=== PATIENT | male | born 1945 | race American Indian/Alaskan Native ===

== ENCOUNTER 2017-06-13 14:33 | Emergency (ER) | payer MEDICARE, MEDICAID ==
[2017-06-13] MEDS ORDERED: Sodium Chloride 0.9% 10 ML Syringe FLUSH PRN (14:42)
[2017-06-13] MEDS ORDERED: Albuterol 0.083% 2.5 MG/3 ML Neb Soln NEB ONE (14:43)
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
[2017-06-13] MEDS ORDERED: Lactated Ringers 1,000 ML IV ONE (15:48)
[2017-06-13] MEDS ORDERED: cefTRIAXone 1,000 MG in Sodium Chloride 0.9% 50 ML IV ONE (15:54)
[2017-06-13] MEDS ORDERED: methylPREDNISolone Sodium Succinate 40 MG/1 ML SDV IVPUSH ONE (16:05)
--- NOTE | 2017-06-13 16:18 | CR ---
INDICATION: Shortness of breath, cough. CHEST: PA and lateral views of the chest were obtained 06/13/2017 and compared with 09/14/2016. There is again evidence of median sternotomy with clips in the mediastinum. The heart is enlarged in general. The aorta is tortuous with calcification in the arch. Bony structures are poorly visualized, but appear grossly intact. Extensive reticulonodular densities are noted throughout the lungs, especially on the right and likely represent pulmonary fibrosis of moderately severe degree , as they are essentially identical to the previous examination. This appearance does make it impossible to exclude areas of patchy bronchopneumonia, however, and acute disease could be superimposed. No gross consolidating pneumonia or pleural effusion was identified. IMPRESSION: 1. No definite acute process, but cannot exclude acute disease superimposed on severe pulmonary fibrosis. 2. ASHD with post-surgical change. 3. Probable COPD with flattened diaphragm leaf. Report was called to Dr. Remy at 1553 hours, 06/13/2017. [facility]
[2017-06-13] MEDS ORDERED: Azithromycin 500 MG Tab PO ONE (16:59)
[2017-06-13 18:18] VITALS: BP 125/76
== END 2017-06-13 18:10 | disposition home or self-care (01) ==
LOC: FB.ED 14:33
DX: E86.0 Dehydration (principal); J40 Bronchitis, not specified as acute or chronic; E78.00 Pure hypercholesterolemia, unspecified; J44.9 Chronic obstructive pulmonary disease, unspecified; I11.0 Hypertensive heart disease with heart failure; I50.9 Heart failure, unspecified; F17.210 Nicotine dependence, cigarettes, uncomplicated; Z91.040 Latex allergy status; Z88.5 Allergy status to narcotic agent; Z79.899 Other long term (current) drug therapy; Z88.8 Allergy status to other drugs, medicaments and biological substances
CPT/HCPCS: 36415; 36600; 71020; 80053; 81001; 82803; 84484; 85027; 94664; 96365; 96375; 99284; A9270; J0696; J2920; J7050; J7120

== ENCOUNTER 2017-07-22 19:58 | Emergency (ER) | payer MEDICARE, MEDICAID ==
[2017-07-22] MEDS ORDERED: Albuterol/Ipratropium 3.0-0.5 MG/3 ML Neb Soln NEB ONE (23:33)
[2017-07-23 00:16] VITALS: BP 108/75
--- NOTE | 2017-07-23 01:33 | ER ---
DATE SEEN: 07/22/2017 ADDENDUM: TIME SEEN: Enrique Loaiza was seen at 2025 hours. He had an EKG with left anterior hemiblock, ischemia noted in lead I, aVF with ST depression 1 mm and T-wave inversion. /[id number] DAYSI/JUAN
--- NOTE | 2017-07-24 10:21 | ER ---
DATE SEEN: 07/22/2017 HISTORY OF PRESENT ILLNESS: This 72-year-old man, who lives in [place], [place], is known to have COPD and is on chronic oxygen therapy, coronary artery disease with previous 1-vessel CABG, status post previous echo 09/12/2016 with ejection fraction 60%. Basilar segmental hypokinesis with diastolic heart failure, normal right ventricular function, moderate dilation of left ventricle, GERD, Keppra for seizures, myocardial infarction 11/2009 with CABG x3 vessels. The patient has been poor health. 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 He still smokes 3 cigarettes per day. Not drinking alcohol. He presents tonight because he has had a dizzy spell. He was mildly short of breath. Denies chest pain. Denied back pain, arm pain, jaw pain, neck pain, or falling. Denies headache or neck stiffness. CURRENT MEDICATIONS: 1. Clopidogrel 75 mg daily. 2. Levetiracetam - Keppra 750 mg b.i.d. 3. Bupropion 150 mg b.i.d. (he has not been successful in stopping his smoking. He still smokes 3 cigarettes per day). 4. Potassium chloride 10 mEq daily. 5. Omeprazole 20 mg daily. 6. Metoprolol tartrate 50 mg b.i.d. 7. Lovastatin 40 mg daily. 8. Lisinopril 10 mg daily. 9. Isosorbide mononitrate (Imdur) 60 mg. 10.Gabapentin 300 mg at bedtime. 11.Lasix 40 mg b.i.d. 12.Tessalon Perles t.i.d. p.r.n. 13.Albuterol DuoNeb 1 dose p.r.n. ALLERGIES: Iodine, latex, Maitake mushrooms, and triamcinolone. REVIEW OF SYSTEMS: The patient is a poor historian. In fact, it is very hard to even hear him. He mumbles and slurs his words so much. It is indeterminate how active he is. It is my notion that he sits in the chair a lot. He has his hat over his head, so I had to bring his hat back so I could look in his eyes. PHYSICAL EXAMINATION: HEENT: PERRLA intact. He does have minimal reactivity of the pupils. Hearing is decreased. Pharynx with poor dentition and mouth is slightly dry. What might be chewing tobacco fragments are in his mouth. NECK: Mild kyphosis. No bruits. No jugular venous distention. LUNGS: Decreased air exchange. Moderate rales in lungs. Moderate dry rales and crackles mostly left base and right base. Absent rhonchi. There are occasional wheezes. No chest wall tenderness to palpation. ABDOMEN: Liver edge is palpable. No splenomegaly noted. Abdomen is otherwise soft. No bruits. EXTREMITIES: Lower extremities without pedal edema. Stasis dermatitis noted. NEUROLOGIC: Deep tendon reflexes hypoactive in upper and lower extremities, but present. Cranial nerves 2 through 12 intact, except for hearing. He has questionable swallowing difficulty. DIAGNOSTIC DATA: Chest x-ray moderate scarring, fibrosis, and several pneumatoceles. No consolidation, no airspace densities. Mild cardiomegaly. LABORATORY FINDINGS: Eosinophilia. The latter makes me wonder if he has Sheila's pneumonitis or Sheila's lung - pulmonary eosinophilia. Hemoglobin is elevated at 16.6, reflects his carbon dioxide level, chronic hypoxia, and chronic hypercarbia from his significant smoking. Hemoglobin was elevated at 14.3. ABGs on 3 L O2 nasal cannula, pO2 is 109, bicarb is 28, ABG saturation 98%, acid- base excess 3.2, and pH 7.41. Complete metabolic panel looks good. Sodium 140, potassium 4.7, chloride 103, CO2 of 29, BUN 31, creatinine 1.3, estimated GFR 54, and BUN and creatinine ratio reflects dehydration 24. Remainder of the laboratory and complete metabolic panel are normal, including albumin and globulin. ASSESSMENT: 1. Exacerbation of chronic obstructive lung disease. 2. It is possible the patient has infection, but at present, it is not evident. 3. Significant chronic obstructive pulmonary disease with fibrosis and no airspace densities, but there is significant suggestion of an infiltrate/fibrosis, areas of poor oxygen perfusion. 4. Coronary artery disease. 5. Seizure disorder. 6. Myocardial infarction, 11/2009 with coronary artery bypass graft of 3 vessels. Ejection fraction in 2016 of 60% with basilar segment hypokinesis and diastolic failure. PLAN: The patient dismissed. Continue with his prednisone which he had started 2 days ago and also his azithromycin. Follow up with his doctor in a week. /[id number] SEAN
--- NOTE | 2017-07-24 13:23 | CR ---
INDICATION: Weakness. CHEST: AP and lateral views of the chest 08/01/2017, compared with 06/13/2017 and 09/14/2016, again revealed evidence of extensive pulmonary fibrosis, appearing most severe on the right. It is difficult to exclude superimposed areas of pneumonia with this appearance. The heart is enlarged. The aorta is tortuous and calcified. Evidence of median sternotomy is noted. Relatively poor inspiration is suggested. It is also impossible to exclude a degree of CHF and pulmonary vascular congestion with this appearance. IMPRESSION: 1. Little change from previous study. No definite acute process. 2. Severe pulmonary fibrosis. 3. ASHD with cardiomegaly. MTDD
== END 2017-07-23 | disposition home or self-care (01) ==
LOC: FB.ED 19:58
DX: J44.1 Chronic obstructive pulmonary disease with (acute) exacerbation (principal); I25.10 Atherosclerotic heart disease of native coronary artery without angina pectoris; I25.2 Old myocardial infarction; Z79.899 Other long term (current) drug therapy; Z91.040 Latex allergy status; Z88.8 Allergy status to other drugs, medicaments and biological substances; K21.9 Gastro-esophageal reflux disease without esophagitis
CPT/HCPCS: 36415; 36600; 71020; 80053; 82803; 83880; 84484; 85025; 85610; 85730; 93005; 94640; 99283; J7620

== ENCOUNTER 2017-08-17 15:01 | Inpatient (IN) | payer MEDICARE, MEDICAID ==
[2017-08-17] MEDS ORDERED: Albuterol/Ipratropium 3.0-0.5 MG/3 ML Neb Soln NEB ONE (15:41)
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
[2017-08-17] MEDS ORDERED: Levofloxacin/Dextrose 5%-Water 750 MG in Premix Bag 1 BAG IV SCH ×2 (17:45→18:45)
[2017-08-17] MEDS ORDERED: Magnesium Hydroxide 400 MG/5 ML Susp 30 ML Cup PO PRN (18:39)
[2017-08-17] MEDS ORDERED: Albuterol 0.5% 5 MG/ML Neb Soln 20 ML Bottle NEB PRN (18:39)
[2017-08-17] MEDS ORDERED: Ondansetron 4 MG Tab.DIS PO PRN (18:39)
[2017-08-17] MEDS ORDERED: Benzonatate 100 MG Cap PO PRN (18:52)
[2017-08-17] MEDS ORDERED: Furosemide 40 MG Tab PO SCH (19:00)
[2017-08-17] MEDS ORDERED: Furosemide 20 MG/2 ML VIAL IVPUSH SCH (19:00)
[2017-08-17] MEDS ORDERED: levETIRAcetam 500 MG Tab PO SCH ×2 (19:00→21:00)
[2017-08-17] MEDS: Albuterol/Ipratropium 3.0-0.5 MG/3 ML Neb Soln NEB SCH ×2 (19:44→22:01)
[2017-08-17] MEDS: Metoprolol Tartrate 50 MG Tab PO SCH (20:05)
[2017-08-17] MEDS: buPROPion 150 MG Tab.SR PO SCH ×2 (20:40→20:41)
[2017-08-17] MEDS: methylPREDNISolone Sodium Succinate 125 MG/2 ML SDV IV SCH (20:42)
[2017-08-18] MEDS: Albuterol/Ipratropium 3.0-0.5 MG/3 ML Neb Soln NEB SCH ×4 (07:17→20:05)
[2017-08-18] MEDS ORDERED: Lisinopril 5 MG Tab PO SCH (09:00)
[2017-08-18] MEDS ORDERED: Isosorbide Mononitrate 60 MG Tab.ER PO SCH (09:00)
[2017-08-18] MEDS: Metoprolol Tartrate 50 MG Tab PO SCH (09:00)
[2017-08-18] MEDS ORDERED: levETIRAcetam 250 MG Tab PO SCH (09:00)
[2017-08-18] MEDS ORDERED: Sodium Chloride 0.9% 10 ML Syringe FLUSH PRN (09:00)
[2017-08-18] MEDS: Enoxaparin 40 MG/0.4 ML Syringe SUBCUT SCH (09:02)
[2017-08-18] MEDS: Clopidogrel 75 MG Tab PO SCH (09:02)
[2017-08-18] MEDS: methylPREDNISolone Sodium Succinate 125 MG/2 ML SDV IV SCH ×2 (09:03→13:35)
[2017-08-18] MEDS: Pantoprazole 40 MG Tab.CR PO SCH (09:03)
[2017-08-18] MEDS: buPROPion 150 MG Tab.SR PO SCH ×2 (09:03→20:03)
[2017-08-18] MEDS ORDERED: Sodium Chloride 0.9% 250 ML IV SCH (09:45)
--- NOTE | 2017-08-18 11:18 | CR ---
INDICATION: Short of breath. CHEST: PA and lateral views of the chest, 08/17/2017, were compared with 2016 and 06/13/2017, again revealing little interval change from the previous examination, with severe pulmonary fibrosis, cardiomegaly, tortuous aorta, post median sternotomy changes. No definite consolidating superimposed pneumonia is identified. No definite pleural effusion is seen. It is difficult to exclude CHF and interstitial lung edema with this appearance additionally - correlate clinically. Overlying EKG leads are noted. IMPRESSION: Overall stable appearance of the chest with fairly severe pulmonary fibrosis, ASHD, and cardiomegaly. It is difficult to exclude mild CHF and interstitial lung edema or superimposed area of pneumonia. MTDD
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
[2017-08-18] MEDS: Nicotine Polacrilex 2 MG Gum CHEW PRN (19:44)
[2017-08-18] MEDS: Levofloxacin 250 MG Tab PO SCH (19:45)
[2017-08-18] MEDS: Metoprolol Succinate 25 MG Tab.ER PO SCH (20:03)
[2017-08-18] MEDS: Gabapentin 300 MG Cap PO SCH (20:04)
[2017-08-18] MEDS: levETIRAcetam 500 MG Tab PO SCH (20:04)
[2017-08-18] MEDS: Simvastatin 20 MG Tab PO SCH (20:07)
[2017-08-19] MEDS: Albuterol/Ipratropium 3.0-0.5 MG/3 ML Neb Soln NEB SCH ×4 (07:37→20:46)
[2017-08-19] MEDS: Isosorbide Mononitrate 30 MG Tab.ER PO SCH (09:04)
[2017-08-19] MEDS: predniSONE 20 MG Tab PO SCH (09:05)
[2017-08-19] MEDS: levETIRAcetam 500 MG Tab PO SCH ×2 (09:06→20:46)
[2017-08-19] MEDS: Clopidogrel 75 MG Tab PO SCH (09:07)
[2017-08-19] MEDS: Lisinopril 2.5 MG Tab PO SCH (09:07)
[2017-08-19] MEDS: Enoxaparin 40 MG/0.4 ML Syringe SUBCUT SCH (09:07)
[2017-08-19] MEDS: Pantoprazole 40 MG Tab.CR PO SCH (09:07)
[2017-08-19] MEDS: buPROPion 150 MG Tab.SR PO SCH ×2 (09:08→20:49)
[2017-08-19] MEDS: Nicotine Polacrilex 2 MG Gum CHEW PRN (09:09)
--- NOTE | 2017-08-19 11:49 | PCM.PN ---
- General Info Date of Service: 08/19/17 Subjective Update: Patient is a 72-year-old male on hospital day #3 for community-acquired pneumonia, possible CHF. Patient is doing very well today. He actually was off his oxygen right now although he normally is on 2 L at home at baseline. He's had no chest pain, breathing is much improved. His blood pressures continue to run low but he's had no symptoms of hypotension. He is using nicotine gum to replace his cigarettes and this has been working well for him. No nausea, no vomiting, no diarrhea. - Patient Data Vitals - Most Recent: Last Vital Signs Temp 36.3 C 08/19/17 00:00 Pulse 66 08/19/17 07:48 Resp 20 08/19/17 04:00 BP 99/67 08/19/17 09:07 Pulse Ox 97 08/19/17 11:19 Weight - Most Recent: 80.286 kg I&O - Last 24 Hours: Intake & Output 08/18/17 08/19/17 08/19/17 22:59 06:59 14:59 Intake Total 300 200 Output Total 400 400 Balance -100 -200 Lab Results Last 24 Hours: Laboratory Results - last 24 hr 08/19/17 08/19/17 Range/Units 06:22 06:22 WBC 19.0 H (4.5-12.0) X10-3/uL RBC 4.84 (4.30-5.75) x10(6)uL Hgb 14.1 (11.5-15.5) g/dL Hct 43.3 (30.0-51.3) % MCV 89.5 (80-96) fL MCH 29.2 (27.7-33.6) pg MCHC 32.6 (32.2-35.4) g/dL RDW 13.7 (11.5-15.5) % Plt Count 269 (125-369) X10(3)uL MPV 9.9 (7.4-10.4) fL Add Manual Diff Yes Neutrophils % (Manual) 84 H (46-82) % Lymphocytes % (Manual) 10 L (13-37) % Monocytes % (Manual) 6 (4-12) % Sodium 140 (135-145) mmol/L Potassium 4.7 (3.5-5.3) mmol/L Chloride 103 (100-110) mmol/L Carbon Dioxide 31 H (23-29) mmol/L BUN 15 (8-23) mg/dL Creatinine 0.9 (0.6-1.3) mg/dL Est Cr Clr Drug Dosing 82.63 mL/min Estimated GFR (MDRD) > 60 (>60) BUN/Creatinine Ratio 16.7 (9-20) Glucose 141 H (80-116) mg/dL Calcium 9.8 (8.6-10.2) mg/dL Med Orders - Current: Current Medications Albuterol (Proventil Neb Soln) 2.5 mg NEB Q2H PRN PRN Reason: Shortness of Breath Albuterol/Ipratropium (Duoneb 3.0-0.5 Mg/3 Ml) 3 ml NEB QIDRT [facility] Last Admin: 08/19/17 11:19 Dose: 3 ml Benzonatate (Tessalon Perles) 100 mg PO TID PRN PRN Reason: Cough Last Admin: 08/18/17 00:30 Dose: 100 mg Bupropion HCl (Wellbutrin Sr) 150 mg PO BID [facility] Last Admin: 08/19/17 09:08 Dose: 150 mg Clopidogrel Bisulfate (Plavix) 75 mg PO DAILY [facility] Last Admin: 08/19/17 09:07 Dose: 75 mg Enoxaparin Sodium (Lovenox) 40 mg SUBCUT DAILY [facility] Last Admin: 08/19/17 09:07 Dose: 40 mg Furosemide (Lasix) 40 mg PO BID [facility] Gabapentin (Neurontin) 300 mg PO BEDTIME [facility] Last Admin: 08/18/17 20:04 Dose: 300 mg Sodium Chloride (Normal Saline) 250 mls @ 100 mls/hr IV ASDIRECTED [facility] Isosorbide Mononitrate (Imdur) 15 mg PO DAILY [facility] Last Admin: 08/19/17 09:04 Dose: 15 mg Levetiracetam (Keppra) 750 mg PO BID [facility] Last Admin: 08/19/17 09:06 Dose: 750 mg Levofloxacin (Levaquin) 750 mg PO Q24H [facility] Stop: 08/21/17 19:01 Last Admin: 08/18/17 19:45 Dose: 750 mg Lisinopril (Prinivil) 2.5 mg PO DAILY [facility] Last Admin: 08/19/17 09:07 Dose: 2.5 mg Magnesium Hydroxide (Milk Of Magnesia) 30 ml PO Q12H PRN PRN Reason: Constipation Metoprolol Succinate (Toprol Xl) 12.5 mg PO BEDTIME [facility] Last Admin: 08/18/17 20:03 Dose: 12.5 mg Nicotine Polacrilex (Nicorelief) 2 mg CHEW Q1H PRN PRN Reason: Other Last Admin: 08/19/17 09:09 Dose: 2 mg Ondansetron HCl (Zofran Odt) 4 mg PO Q6H PRN PRN Reason: nausea, able to take PO Pantoprazole Sodium (Protonix) 40 mg PO DAILY [facility] Last Admin: 08/19/17 09:07 Dose: 40 mg Prednisone (Prednisone) 40 mg PO WITHBREAKFAST [facility] Stop: 08/24/17 08:01 Last Admin: 08/19/17 09:05 Dose: 40 mg Simvastatin (Zocor) 20 mg PO BEDTIME [facility] Last Admin: 08/18/17 20:07 Dose: 20 mg Sodium Chloride (Saline Flush) 10 ml FLUSH ASDIRECTED PRN PRN Reason: flush med Last Admin: 08/18/17 13:35 Dose: 10 ml Discontinued Medications Albuterol/Ipratropium (Duoneb 3.0-0.5 Mg/3 Ml) 3 ml NEB ONETIME ONE Stop: 08/17/17 15:42 Last Admin: 08/17/17 16:20 Dose: 3 ml Furosemide (Lasix) 20 mg IVPUSH DAILY [facility] Last Admin: 08/17/17 20:05 Dose: Not Given Levofloxacin/Dextrose 750 mg/ (Premix) 150 mls @ 100 mls/hr IV Q24H [facility] Last Admin: 08/17/17 19:15 Dose: 100 mls/hr Levofloxacin/Dextrose 750 mg/ (Premix) 150 mls @ 100 mls/hr IV Q24H [facility] Last Admin: 08/17/17 19:33 Dose: Not Given Isosorbide Mononitrate (Imdur) 60 mg PO DAILY [facility] Last Admin: 08/18/17 09:01 Dose: 60 mg Levetiracetam (Keppra) 750 mg PO BID [facility] Last Admin: 08/17/17 20:53 Dose: Not Given Levetiracetam (Keppra) 750 mg PO BID [facility] Last Admin: 08/17/17 20:42 Dose: 750 mg Levetiracetam (Keppra) 750 mg PO BID [facility] Last Admin: 08/18/17 09:01 Dose: 750 mg Lisinopril (Prinivil) 5 mg PO DAILY [facility] Methylprednisolone Sodium Succinate (Solu-Medrol) 125 mg IV TID [facility] Last Admin: 08/18/17 13:35 Dose: 125 mg Methylprednisolone Sodium Succinate (Solu-Medrol) 125 mg IV TID [facility] Metoprolol Tartrate (Lopressor) 25 mg PO BID [facility] Last Admin: 08/18/17 09:00 Dose: Not Given - Exam General: Alert, Oriented, Cooperative, No Acute Distress HEENT: Pupils Equal Neck: Supple Lungs: Other (Lungs much more clear than yesterday. Still has occasional wheezes with deep exhalation. Coarse breath sounds. No rales.) Cardiovascular: Regular Rate, Regular Rhythm, No Murmurs GI/Abdominal Exam: Normal Bowel Sounds, Soft, Non-Tender, No Distention Extremities: No Pedal Edema Skin: Dry, Intact Psy/Mental Status: Alert, Normal Affect, Normal Mood - Problem List & Annotations (1) COPD exacerbation SNOMED Code(s): 337833371627728 Code(s): J44.1 - CHRONIC OBSTRUCTIVE PULMONARY DISEASE W (ACUTE) EXACERBATION Status: Acute Current Visit: Yes Annotation/Comment:: Shortness of breath, likely COPD exacerbation, possible pneumonia. Patient responding very well to current treatment. On all oral medications at this time. Anticipate discharge tomorrow if he continues to do well. Continue duo nebs 4 times a day. Currently on by mouth Levaquin, by mouth prednisone. (2) Hypotension SNOMED Code(s): 21924087 Code(s): I95.9 - HYPOTENSION, UNSPECIFIED Status: Acute Current Visit: Yes Annotation/Comment:: Patient is currently tolerating low dose lisinopril, low-dose metoprolol, and reduced dose Imdur. Continue to monitor blood pressure. (3) Nicotine abuse SNOMED Code(s): 28079467 Code(s): Z72.0 - TOBACCO USE Status: Acute Current Visit: Yes Annotation/Comment:: tobacco replacement. (4) DVT prophylaxis SNOMED Code(s): 515043364 Code(s): LOI6750 - Status: Acute Current Visit: Yes Annotation/Comment :: currently on Lovenox. - Problem List Review Problem List Initiated/Reviewed/Updated: Yes - My Orders Last 24 Hours: My Active Orders 08/18/17 16:02 Nicotine Polacrilex [Nicorelief] 2 mg CHEW Q1H PRN 08/18/17 16:23 Code Status [Resuscitation Status] Routine 08/18/17 19:00 Levofloxacin [Levaquin] 750 mg PO Q24H 08/18/17 21:00 Metoprolol Succinate [Toprol XL] 12.5 mg PO BEDTIME Simvastatin [Zocor] 20 mg PO BEDTIME 08/19/17 08:00 predniSONE 40 mg PO WITHBREAKFAST 08/19/17 09:00 Isosorbide Mononitrate [Imdur] 15 mg PO DAILY Lisinopril [Prinivil] 2.5 mg PO DAILY 08/20/17 05:11 COMPREHENSIVE METABOLIC PN,CMP [CHEM] AM - Plan Plan:: CODE STATUS discussed at length the patient. If his heart were to stop beating or he were to stop breathing, he would not want heroic measures to try to bring him back to life. If his breathing gets so bad that we think we might need to intubate in order to keep him from dying, he would not want to be put on a breathing machine. He would rather have medications given to him to keep him comfortable. Thus the patient is a DNR/DNI.
[2017-08-19] MEDS: Levofloxacin 250 MG Tab PO SCH (18:03)
[2017-08-19] MEDS: Gabapentin 300 MG Cap PO SCH (20:47)
[2017-08-19] MEDS: Metoprolol Succinate 25 MG Tab.ER PO SCH (20:48)
[2017-08-19] MEDS: Simvastatin 20 MG Tab PO SCH (20:51)
[2017-08-20] MEDS: Albuterol/Ipratropium 3.0-0.5 MG/3 ML Neb Soln NEB SCH ×2 (08:23→13:39)
[2017-08-20] MEDS: Clopidogrel 75 MG Tab PO SCH (08:36)
[2017-08-20] MEDS: levETIRAcetam 500 MG Tab PO SCH (08:37)
[2017-08-20] MEDS: buPROPion 150 MG Tab.SR PO SCH (08:37)
[2017-08-20] MEDS: Lisinopril 2.5 MG Tab PO SCH (08:37)
[2017-08-20] MEDS: Pantoprazole 40 MG Tab.CR PO SCH (08:37)
[2017-08-20] MEDS: predniSONE 20 MG Tab PO SCH (08:38)
[2017-08-20] MEDS: Isosorbide Mononitrate 30 MG Tab.ER PO SCH (08:38)
[2017-08-20] MEDS: Nicotine Polacrilex 2 MG Gum CHEW PRN (08:39)
[2017-08-20] MEDS: Enoxaparin 40 MG/0.4 ML Syringe SUBCUT SCH (08:39)
--- NOTE | 2017-08-20 10:32 | PCM.DCSUM1 ---
Discharge Summary - Hospital Course Free Text/Narrative:: Patient is a 72-year-old male with chronic obstructive pulmonary disease with pulmonary fibrosis, and congestive heart failure with chronic diastolic dysfunction and cardiomegaly, ejection fraction 60% in August 2016. Over the past few months he's had increasing shortness of breath. He just gets really played out when he tries to do anything. He has not had any increased phlegm but has had increased cough. He's had no chest pain. No nausea, vomiting, diarrhea. No fevers, no chills. He has definitely had less energy and more fatigued. Less appetite. He called the [facility] on 08/14/17 and left a phone message for his doctor who because he was having hypotension held his lisinopril and metoprolol and told him to start Ceftin 250 mg by mouth twice a day 1 week. When the home health nurse was out day [employer] she was concerned about his shortness of breath on his 2 L of oxygen that he is normally on and asked him to come into the emergency department. He was evaluated there and found to have a pneumonia and was admitted on IV Levaquin, IV steroids and DuoNeb's. Blood pressures at home were in the 70s at times. He has a history of myocardial infarction in 2004 with coronary artery bypass grafting 3. Also thinks he's had a couple of "other heart attacks" that were small. He takes Lasix 40 mg by mouth twice a day, Imdur 60 mg daily, and was also taking lisinopril 5 mg daily and metoprolol. He did not lisinopril, metoprolol for the last week [employer]. Hospital course: Patient did very well throughout his hospital stay. Cough improved. Shortness of breath improved. Need for supplemental oxygen decreased below baseline. He was able to be converted to oral steroids and oral antibiotics fairly quickly and on hospital day #4 was ready for discharge. Patient on day of discharge was feeling about 80% back to baseline. No chest pain, no shortness of breath, no nausea, no vomiting, no diarrhea. He does have a history of smoking at home and has been using the gum in the hospital successfully. Will be discharged on this as he's interested in smoking cessation. - Discharge Data Discharge Date: 08/20/17 Discharge Disposition: Home, W Home Health Agency 06 Condition: Good - Discharge Diagnosis/Problem(s) (1) COPD exacerbation SNOMED Code(s): 865239723136955 ICD Code: J44.1 - CHRONIC OBSTRUCTIVE PULMONARY DISEASE W (ACUTE) EXACERBATION Status: Acute Current Visit: Yes Problem Details: Clinically improved. D/C to complete 5 days of PO levaquin, PO prednisone. (2) Hypotension SNOMED Code(s): 44833859 ICD Code: I95.9 - HYPOTENSION, UNSPECIFIED Status: Acute Current Visit: Yes Problem Details: Patient is currently tolerating low dose lisinopril, low- dose metoprolol, and reduced dose Imdur. If continues to have low BP as outpatient, would consider stopping Imdur. (3) Nicotine abuse SNOMED Code(s): 17503424 ICD Code: Z72.0 - TOBACCO USE Status: Acute Current Visit: Yes Problem Details: tobacco replacement as outpatient, encouraged to quit. (4) DVT prophylaxis SNOMED Code(s): 175163272 ICD Code: DCV2750 - Status: Acute Current Visit: Yes Problem Details: currently on Lovenox. 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 Consider changing to other antidepressant. - Patient Instructions Diet: Heart Healthy Diet, Low Sodium Activity: Cough & Deep Breathe Other/Special Instructions: Continue levaquin and prednisone for one more day. Follow up with your regular doctor to recheck your potassium and kidney function as well as your blood pressure medications. Until you see your doctor , take only 1/2 of your blood pressure pills, and don't take your potassium. If your blood pressure is still low, stop the imdur first. Your metoprolol and lisinopril are good for your heart after heart attack. Talk to your doctor about stopping the wellbutrin and using a different antidepressant as wellbutrin can cause seizures and you have a history of seizures. - Discharge Plan Prescriptions/Med Rec: Isosorbide Mononitrate [Imdur] 15 mg PO DAILY 30 Days #15 tab.er Levofloxacin [Levaquin] 750 mg PO Q24H 1 Days #1 tablet Lisinopril [Prinivil] 2.5 mg PO DAILY 30 Days #15 tablet Metoprolol Succinate [Toprol XL] 12.5 mg PO BEDTIME 30 Days #15 tab.er Nicotine Polacrilex [Nicotine Lozenge] 4 mg BC Q1H PRN 30 Days #100 lozng.mini PRN Reason: nicotine addiction Nicotine Polacrilex [Nicorelief] 2 mg CHEW Q1H PRN 10 Days #60 gum PRN Reason: nicotine addiction Prednisone [IJD: predniSONE] 40 mg PO WITHBREAKFAST 1 Days #2 tablet Home Medications: Home Meds Furosemide [Lasix] 40 mg PO BID 07/23/13 [History] Omeprazole 20 mg PO DAILY 07/23/13 [History] Clopidogrel Bisulfate [Clopidogrel] 75 mg PO DAILY 03/21/14 [History] Albuterol/Ipratropium [DuoNeb 3.0-0.5 MG/3 ML] 1 dose INH QID PRN 09/11/16 [ History] Gabapentin 300 mg PO BEDTIME 09/11/16 [History] buPROPion HCl [Wellbutrin SR] 150 mg PO BID 09/12/16 [History] Benzonatate [Tessalon Perles] 100 mg PO TID 07/22/17 [History] levETIRAcetam [Keppra] 750 mg PO BID 07/22/17 [History] Albuterol [Ventolin HFA] 2 puff IH 6XDAY PRN 08/18/17 [History] Lovastatin 40 mg PO BEDTIME 08/18/17 [History] Albuterol/Ipratropium [DuoNeb 3.0-0.5 MG/3 ML] 3 ml NEB QIDRT neb 08/20/17 [Rx] Isosorbide Mononitrate [Imdur] 15 mg PO DAILY 30 Days #15 tab.er 08/20/17 [Rx] Levofloxacin [Levaquin] 750 mg PO Q24H 1 Days #1 tablet 08/20/17 [Rx] Lisinopril [Prinivil] 2.5 mg PO DAILY 30 Days #15 tablet 08/20/17 [Rx] Metoprolol Succinate [Toprol XL] 12.5 mg PO BEDTIME 30 Days #15 tab.er 08/20/17 [Rx] Nicotine Polacrilex [Nicorelief] 2 mg CHEW Q1H PRN 10 Days #60 gum 08/20/17 [Rx] Nicotine Polacrilex [Nicotine Lozenge] 4 mg BC Q1H PRN 30 Days #100 lozng.mini 08/20/17 [Rx] Prednisone [IJD: predniSONE] 40 mg PO WITHBREAKFAST 1 Days #2 tablet 08/20/17 [ Rx] Patient Handouts: Venous Thromboembolism Prevention Forms: ED Department Discharge Referrals: PCP,None [Primary Care Provider] - - Patient Data Vitals - Most Recent: Last Vital Signs Temp 36.4 C 08/20/17 00:00 Pulse 64 08/20/17 08:23 Resp 18 08/20/17 00:00 BP 100/60 08/20/17 08:38 Pulse Ox 90 L 08/20/17 08:23 Weight - Most Recent: 80.104 kg I&O - Last 24 hours: Intake & Output 08/19/17 08/20/17 08/20/17 23:59 06:59 14:59 Intake Total Output Total Balance Lab Results - Last 24 hrs: Laboratory Results - last 24 hr 08/20/17 08/20/17 Range/Units 05:30 05:30 WBC 16.2 H (4.5-12.0) X10-3/uL RBC 4.95 (4.30-5.75) x10(6)uL Hgb 14.5 (11.5-15.5) g/dL Hct 43.9 (30.0-51.3) % MCV 88.6 (80-96) fL MCH 29.3 (27.7-33.6) pg MCHC 33.1 (32.2-35.4) g/dL RDW 14.3 (11.5-15.5) % Plt Count 303 (125-369) X10(3)uL MPV 9.8 (7.4-10.4) fL Neut % (Auto) 72.6 (46-82) % Lymph % (Auto) 16.9 (13-37) % [place] % (Auto) 10.0 (4-12) % Eos % (Auto) 0 L (1.0-5.0) % Baso % (Auto) 0 (0-2) % Neut # (Auto) 11.8 H (1.6-8.3) # Lymph # (Auto) 2.7 (0.6-5.0) # [place] # (Auto) 1.6 H (0.0-1.3) # Eos # (Auto) 0.0 (0.0-0.8) # Baso # (Auto) 0.1 (0.0-0.2) # Sodium 138 (135-145) mmol/L Potassium 4.2 (3.5-5.3) mmol/L Chloride 101 (100-110) mmol/L Carbon Dioxide 30 H (23-29) mmol/L BUN 17 (8-23) mg/dL Creatinine 0.8 (0.6-1.3) mg/dL Est Cr Clr Drug Dosing 92.96 mL/min Estimated GFR (MDRD) > 60 (>60) BUN/Creatinine Ratio 21.3 H (9-20) Glucose 95 (80-116) mg/dL Calcium 9.7 (8.6-10.2) mg/dL Total Bilirubin 0.5 (0.1-1.3) mg/dL AST 21 D (5-27) IU/L ALT 11 L D (14-26) IU/L Total Protein 6.6 (6.0-8.0) g/dL Albumin 2.8 L (3.2-4.6) g/dL Globulin 3.8 g/dL Albumin/Globulin Ratio 0.7 Med Orders - Current: Current Medications Albuterol (Proventil Neb Soln) 2.5 mg NEB Q2H PRN PRN Reason: Shortness of Breath Albuterol/Ipratropium (Duoneb 3.0-0.5 Mg/3 Ml) 3 ml NEB QIDRT [facility] Last Admin: 08/20/17 08:23 Dose: 3 ml Benzonatate (Tessalon Perles) 100 mg PO TID PRN PRN Reason: Cough Last Admin: 08/18/17 00:30 Dose: 100 mg Bupropion HCl (Wellbutrin Sr) 150 mg PO BID [facility] Last Admin: 08/20/17 08:37 Dose: 150 mg Clopidogrel Bisulfate (Plavix) 75 mg PO DAILY [facility] Last Admin: 08/20/17 08:36 Dose: 75 mg Enoxaparin Sodium (Lovenox) 40 mg SUBCUT DAILY [facility] Last Admin: 08/20/17 08:39 Dose: 40 mg Furosemide (Lasix) 40 mg PO BID [facility] Gabapentin (Neurontin) 300 mg PO BEDTIME [facility] Last Admin: 08/19/17 20:47 Dose: 300 mg Sodium Chloride (Normal Saline) 250 mls @ 100 mls/hr IV ASDIRECTED [facility] Isosorbide Mononitrate (Imdur) 15 mg PO DAILY [facility] Last Admin: 08/20/17 08:38 Dose: 15 mg Levetiracetam (Keppra) 750 mg PO BID [facility] Last Admin: 08/20/17 08:37 Dose: 750 mg Levofloxacin (Levaquin) 750 mg PO Q24H [facility] Stop: 08/21/17 19:01 Last Admin: 08/19/17 18:03 Dose: 750 mg Lisinopril (Prinivil) 2.5 mg PO DAILY [facility] Last Admin: 08/20/17 08:37 Dose: 2.5 mg Magnesium Hydroxide (Milk Of Magnesia) 30 ml PO Q12H PRN PRN Reason: Constipation Metoprolol Succinate (Toprol Xl) 12.5 mg PO BEDTIME [facility] Last Admin: 08/19/17 20:48 Dose: 12.5 mg Nicotine Polacrilex (Nicorelief) 2 mg CHEW Q1H PRN PRN Reason: Other Last Admin: 08/20/17 08:39 Dose: 2 mg Ondansetron HCl (Zofran Odt) 4 mg PO Q6H PRN PRN Reason: nausea, able to take PO Pantoprazole Sodium (Protonix) 40 mg PO DAILY [facility] Last Admin: 08/20/17 08:37 Dose: 40 mg Prednisone (Prednisone) 40 mg PO WITHBREAKFAST [facility] Stop: 08/24/17 08:01 Last Admin: 08/20/17 08:38 Dose: 40 mg Simvastatin (Zocor) 20 mg PO BEDTIME [facility] Last Admin: 08/19/17 20:51 Dose: 20 mg Sodium Chloride (Saline Flush) 10 ml FLUSH ASDIRECTED PRN PRN Reason: flush med Last Admin: 08/18/17 13:35 Dose: 10 ml Discontinued Medications Albuterol/Ipratropium (Duoneb 3.0-0.5 Mg/3 Ml) 3 ml NEB ONETIME ONE Stop: 08/17/17 15:42 Last Admin: 08/17/17 16:20 Dose: 3 ml Furosemide (Lasix) 20 mg IVPUSH DAILY [facility] Last Admin: 08/17/17 20:05 Dose: Not Given Levofloxacin/Dextrose 750 mg/ (Premix) 150 mls @ 100 mls/hr IV Q24H [facility] Last Admin: 08/17/17 19:15 Dose: 100 mls/hr Levofloxacin/Dextrose 750 mg/ (Premix) 150 mls @ 100 mls/hr IV Q24H [facility] Last Admin: 08/17/17 19:33 Dose: Not Given Isosorbide Mononitrate (Imdur) 60 mg PO DAILY [facility] Last Admin: 08/18/17 09:01 Dose: 60 mg Levetiracetam (Keppra) 750 mg PO BID [facility] Last Admin: 08/17/17 20:53 Dose: Not Given Levetiracetam (Keppra) 750 mg PO BID [facility] Last Admin: 08/17/17 20:42 Dose: 750 mg Levetiracetam (Keppra) 750 mg PO BID [facility] Last Admin: 08/18/17 09:01 Dose: 750 mg Lisinopril (Prinivil) 5 mg PO DAILY [facility] Methylprednisolone Sodium Succinate (Solu-Medrol) 125 mg IV TID [facility] Last Admin: 08/18/17 13:35 Dose: 125 mg Methylprednisolone Sodium Succinate (Solu-Medrol) 125 mg IV TID [facility] Metoprolol Tartrate (Lopressor) 25 mg PO BID [facility] Last Admin: 08/18/17 09:00 Dose: Not Given - Exam General: Reports: Alert, Oriented, Cooperative, No Acute Distress HEENT: Reports: Pupils Equal, Pupils Reactive Neck: Reports: Supple Lungs: Reports: Clear to Auscultation (still rare expiratory wheezes.) Cardiovascular: Reports: Regular Rate, Regular Rhythm, No Murmurs GI/Abdominal Exam: Normal Bowel Sounds, Soft, Non-Tender, No Distention Extremities: Normal Inspection, No Pedal Edema Psy/Mental Status: Reports: Alert, Normal Affect, Normal Mood *Q Meaningful Use (DIS) - VTE *Q VTE Criteria *Q: - Stroke *Q Stroke Criteria *Q: - AMI *Q AMI Criteria *Q:
[2017-08-20 13:37] VITALS: BP 112/60
--- NOTE | 2017-08-21 11:01 | CR ---
INDICATION: Follow-up right upper lobe infiltrate. CHEST: PA and lateral views of the chest 08/19/2017 were compared with 2016 and 07/22/2017, and again revealed findings compatible with severe fibrosis. No gross consolidating pneumonia or definite effusion was seen, however. Findings are compatible with severe pulmonary fibrosis. The possibility of superimposed areas of pneumonia cannot be excluded with this appearance. However, as mentioned above, no consolidating pneumonia was identified to strongly suggest an acute process. MTDD
== END 2017-08-20 12:40 | disposition home health service (06) | DRG 193 ==
LOC: FB.ED 15:01 → FB.MS 17:41
PROVIDERS: ADMIT Emergency Medicine; ATTEND Family Medicine
DX: J18.9 Pneumonia, unspecified organism (principal); I50.33 Acute on chronic diastolic (congestive) heart failure; J44.0 Chronic obstructive pulmonary disease with (acute) lower respiratory infection; J44.1 Chronic obstructive pulmonary disease with (acute) exacerbation; F17.210 Nicotine dependence, cigarettes, uncomplicated; I11.0 Hypertensive heart disease with heart failure; J84.10 Pulmonary fibrosis, unspecified; R09.02 Hypoxemia; Z99.81 Dependence on supplemental oxygen; I95.9 Hypotension, unspecified; Z66 Do not resuscitate; R06.02 Shortness of breath; I25.10 Atherosclerotic heart disease of native coronary artery without angina pectoris; Z95.1 Presence of aortocoronary bypass graft; E78.5 Hyperlipidemia, unspecified; Z86.73 Personal history of transient ischemic attack (TIA), and cerebral infarction without residual deficits; G40.409 Other generalized epilepsy and epileptic syndromes, not intractable, without status epilepticus; I25.2 Old myocardial infarction; F41.9 Anxiety disorder, unspecified; Z91.040 Latex allergy status; Z91.018 Allergy to other foods; Z88.8 Allergy status to other drugs, medicaments and biological substances; Z91.048 Other nonmedicinal substance allergy status
CPT/HCPCS: 36415; 36600; 71020; 80053; 82803; 83880; 84484; 85025; 86140; 93005; 99285; J7620; 80048; 81001; 94640; A9270-GY; J1650; J1956; J2930; J7050